=== PATIENT | male | born 1975 | race African-American/Black ===

== ENCOUNTER 2016-04-18 00:44 | Emergency (ER) | payer OTHER ==
[~2016-04-18] VITALS: Ht 185.4 cm; Wt 86.2 kg
[~2016-04-18 00:44] MED LIST: TRAMADOL HCL50 MG
[2016-04-18 01:03] VITALS: BP 138/90
--- NOTE | 2016-04-18 01:19 | NUR ---
PT TAKEN TO BED 5
--- NOTE | 2016-04-18 01:56 | NUR ---
41Y/M PATIENT PRESENTS TO ED WITH C/O RT. FOOT PAIN X 1 DAY . PT STATES BUG BITE TO RT. LEG AND HEAD, RT. LEG STARTED SWELLING AND PAIN TODAY . DENIES N/V/D; SKIN IS PINK/WARM/DRY, RT. LEG SWELLING AND REDNESS, NOTED CHRONIC WOUND; AAOX4 WITH EVEN AND STEADY GAIT; LUNGS CLEAR BL; HR EVEN AND REGULAR; PT DENIES ANY FEVER, CP, SOB, OR COUGH AT THIS TIME; PATIENT STATES PAIN OF 8/10 AT THIS TIME; VSS; PATIENT POSITIONED FOR COMFORT; HOB ELEVATED; BEDRAILS UP X2; BED DOWN. ER MD MADE AWARE OF PT STATUS.
[2016-04-18 01:59] VITALS: BP 134/79
--- NOTE | 2016-04-18 02:00 | NUR ---
Patient discharged with v/s stable. Written and verbal after care instructions given and explained. Patient alert, oriented and verbalized understanding of instructions. Ambulatory with steady gait. All questions addressed prior to discharge. ID band removed. Patient advised to follow up with PMD. Rx of BACTRIM DS given. Patient educated on indication of medication including possible reaction and side effects. Opportunity to ask questions provided and answered.
== END 2016-04-18 02:00 | disposition home or self-care (01) ==
LOC: MED 00:44
DX: L03.811 Cellulitis of head [any part, except face] (principal); L03.115 Cellulitis of right lower limb; R03.0 Elevated blood-pressure reading, without diagnosis of hypertension; E11.9 Type 2 diabetes mellitus without complications

== ENCOUNTER 2016-07-26 11:25 | Emergency (ER) | payer OTHER ==
[~2016-07-26] VITALS: Ht 185.4 cm; Wt 86.2 kg
[2016-07-26 11:54] VITALS: BP 141/94
--- NOTE | 2016-07-26 11:57 | NUR ---
PT AMBULATED TO BED 8.
--- NOTE | 2016-07-26 12:00 | NUR ---
Note undone in EDM - 07/26/16 at 1220 by [facility] APT CAME TO ER DUE TO ABSCESS TO LOWER RIGHT LEG X4 DAYS;PT STATES ABSCESS JUST APPEAR;WITH ITCHINESS,REDNESS AND MILD SWELLING NOTED. DENIES NUMBNESS/TINGLING SENSATION ON RT LEG;DENIES N/V/D; SKIN IS PINK/WARM/DRY; AAOX4 WITH EVEN AND STEADY GAIT; LUNGS CLEAR BL; HR EVEN AND REGULAR; PT DENIES ANY FEVER, CP, SOB, OR COUGH AT THIS TIME; PATIENT STATES PAIN OF 0/10 AT THIS TIME; VSS; PATIENT POSITIONED FOR COMFORT; HOB ELEVATED; BEDRAILS UP X2; BED DOWN. ER MD WILL BE NOTIFY.
[2016-07-26] MEDS ORDERED: LIDOCAINE 1% 500 MG/50 ML VIAL INJ ONE (12:10)
[2016-07-26] MEDS ORDERED: KETOROLAC 60 MG/2 ML VIAL IM ONE (12:10)
--- NOTE | 2016-07-26 12:37 | NUR ---
DR RAE AT BEDSIDE;I AND D DONE.
--- NOTE | 2016-07-26 12:55 | NUR ---
Patient discharged with v/s stable. Written and verbal after care instructions given and explained. Patient alert, oriented and verbalized understanding of instructions. Ambulatory with steady gait. All questions addressed prior to discharge. ID band removed. Patient advised to follow up with PMD. Rx of KEFLEX,NORCO,BACTRIM AND MOTRIN given. Patient educated on indication of medication including possible reaction and side effects. Opportunity to ask questions provided and answered.
[2016-07-26 12:57] VITALS: BP 141/94
== END 2016-07-26 12:55 | disposition home or self-care (01) ==
LOC: MED 11:25
DX: L02.415 Cutaneous abscess of right lower limb (principal); F17.200 Nicotine dependence, unspecified, uncomplicated
CPT/HCPCS: 10060; 96372; 99283; J1885; J2001

== ENCOUNTER 2017-03-09 01:40 | Emergency (ER) | payer SELFPAY ==
[~2017-03-09] VITALS: Ht 185.4 cm; Wt 81.6 kg
[2017-03-09 01:50] VITALS: BP 130/80
--- NOTE | 2017-03-09 01:56 | NUR ---
TO LOBBY, V/S STABLE,AMB, A/W FOR BED, ERMMing NOTED
--- NOTE | 2017-03-09 04:00 | NUR ---
42Y/M PT. PRESENTS TO ED WITH C/O TOOTHACHE. NO MEDICAL HX. AAO X4, AMBULATORY WITH STEDAY GAIT. C/O LT. TOOTH ACHE 10/14. VSS, ER MADE AWARE OFPT. STATUS.
[2017-03-09] MEDS: KETOROLAC 60 MG/2 ML VIAL IM ONE (04:01)
--- NOTE | 2017-03-09 04:26 | NUR ---
Patient discharged with v/s stable. Written and verbal after care instructions given and explained. Patient alert, oriented and verbalized understanding of instructions. Ambulatory with steady gait. All questions addressed prior to discharge. ID band removed. Patient advised to follow up with PMD. Rx of NORCO 5/325MG given. Patient educated on indication of medication including possible reaction and side effects. Opportunity to ask questions provided and answered.
[2017-03-09 04:27] VITALS: BP 116/78
== END 2017-03-09 04:26 | disposition home or self-care (01) ==
LOC: MED 01:40
DX: K08.89 Other specified disorders of teeth and supporting structures (principal); E11.9 Type 2 diabetes mellitus without complications; F17.210 Nicotine dependence, cigarettes, uncomplicated; Z53.21 Procedure and treatment not carried out due to patient leaving prior to being seen by health care provider
CPT/HCPCS: 96372; 99283; J1885

== ENCOUNTER 2019-05-29 12:36 | Emergency (ER) | payer OTHER ==
[~2019-05-29] VITALS: Ht 185.4 cm; Wt 87.1 kg
[2019-05-29 12:42] VITALS: BP 117/92
[2019-05-29] MEDS ORDERED: KETOROLAC 30 MG/ML VIAL IM ONE (13:45)
[2019-05-29] MEDS ORDERED: FLUORESCEIN OPTH STRIP 1 MG OP ONE (13:45)
[2019-05-29] MEDS ORDERED: TETRACAINE HCL/PF 0.5% OPTH 4 ML BTL OP ONE (13:45)
--- NOTE | 2019-05-29 14:00 | NUR ---
Pt presents ambulatory to ED, c/o L upper periorbital region rash with blisters, x1 week. Pt reports L eye pain. Denies itching. Denies fever/chills. PERRLA 3mm, L eye sclera with redness. Pt awake and alert, skin normal color warm and dry, rr even and unlabored. Denies med hx or rx.
--- NOTE | 2019-05-29 14:05 | NUR ---
CHRIS Miles at bedside for slit lamp evaluation
[2019-05-29 14:53] VITALS: BP 129/80
--- NOTE | 2019-05-29 14:54 | NUR ---
Patient discharged with v/s stable. Written and verbal after care instructions given and explained. Patient alert, oriented and verbalized understanding of instructions. Ambulatory with steady gait. All questions addressed prior to discharge. ID band removed. Patient advised to follow up with PMD. Rx of prednisone, ibuprofen, acyclovir given. Patient educated on indication of medication including possible reaction and side effects. Opportunity to ask questions provided and answered.
== END 2019-05-29 14:54 | disposition home or self-care (01) ==
LOC: MED 12:36
DX: B02.9 Zoster without complications (principal); Z88.5 Allergy status to narcotic agent
CPT/HCPCS: 96372; 99283; J1885

== ENCOUNTER 2019-05-29 20:11 | Emergency (ER) | payer OTHER ==
[~2019-05-29] VITALS: Ht 185.4 cm; Wt 86.2 kg
[2019-05-29 20:29] VITALS: BP 143/62
--- NOTE | 2019-05-29 20:29 | NUR ---
Patient discharged with v/s stable. Written and verbal after care instructions given and explained. Patient alert, oriented and verbalized understanding of instructions. Ambulatory with steady gait. All questions addressed prior to discharge. ID band removed. Patient advised to follow up with PMD. Rx of gabapentin given. Patient educated on indication of medication including possible reaction and side effects. Opportunity to ask questions provided and answered.
--- NOTE | 2019-05-29 20:29 | NUR ---
patient seen and cleared for discharge by CHRIS Miles.
== END 2019-05-29 20:29 | disposition home or self-care (01) ==
LOC: MED 20:11
DX: B02.9 Zoster without complications (principal); E11.9 Type 2 diabetes mellitus without complications; Z88.8 Allergy status to other drugs, medicaments and biological substances
CPT/HCPCS: 99283